=== PATIENT | male | born 1990 ===

== ENCOUNTER 2025-02-08 15:50 | Inpatient (IN) | payer MEDICAID ==
[~2025-02-08] VITALS: Ht 190.5 cm; Wt 86.3 kg
[2025-02-08 17:09] VITALS: RESP 16
[2025-02-08 19:13] VITALS: BP 89/50; PULSE 75; RESP 18; TEMP 98.2; O2SAT 96
[2025-02-08] MEDS ORDERED: NO HOME MEDS (19:40)
[2025-02-08] MEDS ORDERED: magnesium hydroxide 30ml (MOM) UD suspension PO PRN (19:45)
[2025-02-08] MEDS ORDERED: mag hydrox/Alum hydrox/simeth 30ml oral suspension PO PRN (19:45)
[2025-02-09 07:00] VITALS: RESP 16
[2025-02-09 07:16] VITALS: RESP 16
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
--- NOTE | 2025-02-09 16:36 | HISTORY AND PHYSICAL ---
History & Physical Providers to CC ~ History of Present Illness Reason for Admit\Complaint: suicidal ideation History of Present Illness Patient was seen in his room he denied having any medical issues no open wounds no acute problems. He was seen by psychiatric team for suicidal ideation. Ps ychiatric consult note reviewed. Allergies: Coded Allergies: NSAIDS (Non-Steroidal Anti-Inflamma (Verified Allergy, Unknown, 02/08/25) Penicillins (Verified Allergy, Unknown, 02/08/25) Home Medications Home Medications Active Reported No Home Medications (Home Med List) Each Past Medical History Past Medical History No significant medical history Past Surgical History Surgical History Comment No significant surgery history Past Social History Social History Comment Patient denied use of any alcohol tobacco or drug ,. ROS ROS Review of system as mentioned above in HPI rest of the review of system unremarkable Exam Vitals: Vital Signs Date Time Temp Pulse Resp B/P (MAP) Pulse Ox O2 Delivery O2 Flow Rate FiO2 02/09/25 07:16 16 Room Air 02/08/25 19:13 98.2 75 89/50 (63) 96 General: General-patient not in any acute distress, alert awake age-appropriate, looks comfortable HEENT-atraumatic normocephalic, neck supple without elevated JVD, No lymphadenopathy bilaterally. Eyes-no icterus or pallor seen in eyes Chest-clear to auscultation bilaterally, breathing nonlabored no tachypnea, no wheezing, no crepitation, no crackles. Heart-S1-S2 normal, regular heart rate no murmur Abdomen bowel sounds positive on auscultation, soft nondistended nontender no guarding, no rigidity Skin no active skin rash Neurology-grossly intact, nonfocal alert awake Extremity- no pedal edema able to move all 4 extremities Psychiatry - patient is not confused or agitated cooperated during physical examination Additional Plan Patient was seen in his room he denied having any medical issues no open wounds no acute problems. He was seen by psychiatric team for suicidal ideation. Psychiatric consult note reviewed. CBC CMP sed rate and procalcitonin ordered today. Hospitalist team we will continue to follow patient as needed or as per protocol. Date of Service: Feb 09, 2025 Billing Provider: ROQUE EPPS MD Common Visit Codes: [id number] INP/OBS CARE (LOW) ROQUE EPPS MD Feb 09, 2025 16:36
[2025-02-09 19:00] VITALS: RESP 16
[2025-02-09 19:46] VITALS: RESP 16
[2025-02-10 07:15] VITALS: RESP 16
--- NOTE | 2025-02-10 09:27 | DISCHARGE SUMMARY ---
Discharge Summary Providers to ~ Discharge Summary Admission Diagnosis: UNSPECIFIED MOOD DISORDER. SUICIDAL IDEATION Hospital Course DATE OF ADMISSION: DATE OF DISCHARGE: Discharge Diagnosis\Comment: LEFT AMA Operations\Procedures: LEFT AMA Consultants: LEFT AMA Complications: LEFT AMA Condition on DC: Stable 2 or more antipsychotic used: No 2/more antipsychotic addressed: No Does Patient smoke: Yes Smoking education given.: Yes Discharge Summary: The patient left AMA on 02/10/2025 @ 0740am. *Problems/Diagnosis: (1) Unspecified mood [affective] disorder (2) Suicidal ideation Total Time Spent on D/C: Up to 30 Minutes Counseling Services Smoking & Tobacco Cessation: N/A CODING VISIT-PSYCHIATRY Date of Service: Feb 10, 2025 Billing Provider: APRIL MCCLAIN APRN Psych Common Visit Codes: NOT BILLABLE APRIL MCCLAIN APRN Feb 09, 2025 15:42
== END 2025-02-10 07:40 | disposition left against medical advice (07) | DRG 751 ==
LOC: ADULT MH 16:01 → UNDOADMIN 16:19 → ADULT MH 02-09 19:18
PROVIDERS: ADMIT Psychiatry & Neurology Psychiatry; ATTEND Psychiatry & Neurology Psychiatry
PROC: GZHZZZZ Group Psychotherapy (ICD-10-PCS; principal; 2025-02-09)
PROC: GZ51ZZZ Individual Psychotherapy, Behavioral (ICD-10-PCS; 2025-02-09)
DX: F39 Unspecified mood [affective] disorder (principal); R45.851 Suicidal ideations; Z53.21 Procedure and treatment not carried out due to patient leaving prior to being seen by health care provider; Z88.0 Allergy status to penicillin; Z59.00 Homelessness unspecified; Z88.6 Allergy status to analgesic agent
CPT/HCPCS: 87081; 99285